=== PATIENT | female | born 1945 | race Caucasian/White ===

== ENCOUNTER → 2017-05-24 | Outpatient (CLI) | payer OTHER | LOC: FIMAGING 11:35 | PROVIDERS: ATTEND Internal Medicine | DX: Z12.31 Encounter for screening mammogram for malignant neoplasm of breast (principal); Z80.3 Family history of malignant neoplasm of breast ==

== ENCOUNTER → 2018-05-06 | Outpatient (CLI) | payer OTHER | LOC: BMCIMAGING 11:59 | PROVIDERS: ATTEND Internal Medicine | DX: J40 Bronchitis, not specified as acute or chronic (principal) ==

== ENCOUNTER → 2018-06-19 | Outpatient (CLI) | payer OTHER | LOC: BMCIMAGING 08:06 | PROVIDERS: ATTEND Internal Medicine | DX: R94.5 Abnormal results of liver function studies (principal); K76.89 Other specified diseases of liver ==

== ENCOUNTER → 2018-07-22 | Outpatient (CLI) | payer OTHER | LOC: FIMAGING 14:38 | PROVIDERS: ATTEND Internal Medicine | DX: Z12.31 Encounter for screening mammogram for malignant neoplasm of breast (principal); Z80.3 Family history of malignant neoplasm of breast ==

== ENCOUNTER 2018-08-07 09:04 | Outpatient (CLI) | payer OTHER ==
[2018-08-07] MEDS ORDERED: NALOXONE HCL 0.4 MG/ML INJ IVP PRN (09:08)
[2018-08-07] MEDS ORDERED: fentaNYL 100 MCG/2 ML INJ IVP PRN (09:08)
[2018-08-07] MEDS ORDERED: MIDAZOLAM 2 MG/2 ML VIAL IVP PRN (09:08)
[2018-08-07] MEDS ORDERED: FLUMAZENIL 0.5 MG/5 ML MDV IVP PRN (09:08)
[2018-08-07] MEDS ORDERED: NS 1,000 ML IV SCH (09:15)
[2018-08-07] MEDS ORDERED: LIDOCAINE 1% 300 MG/30 ML SDV ONE (09:49)
[2018-08-07] MEDS ORDERED: MIDAZOLAM 2 MG/2 ML VIAL ONE (10:01)
[2018-08-07] MEDS ORDERED: fentaNYL 100 MCG/2 ML INJ ONE (10:01)
[2018-08-07] MEDS ORDERED: FLUMAZENIL 0.5 MG/5 ML MDV IVP ONE (10:01)
[2018-08-07] MEDS ORDERED: NALOXONE HCL 0.4 MG/ML INJ ONE (10:02)
--- NOTE | 2018-08-07 10:29 | PDPROPOC ---
Sedation Plan of Care ASA Classification: ASA 2 Mallampati Score: Class 2 Mallampati Reference Image:
--- NOTE | 2018-08-07 10:29 | PDRADPRE ---
Radiology History & Physical Indication for procedure: liver disease Home medications: Aspirin 81mg (*) 81 mg PO DAILY 07/31/18 [Last Taken Unknown] Levothyroxine 0.088 mg PO DAILY 07/31/18 [Last Taken Unknown] Preservision Areds 2 Softgel 1 tab PO BID 07/31/18 [Last Taken Unknown] Ranitidine HCl 150 mg PO DAILY 07/31/18 [Last Taken Unknown] Sertraline HCl 50 mg PO DAILY 07/31/18 [Last Taken Unknown] Vitamin D3 1 tab PO DAILY 07/31/18 [Last Taken Unknown] Allergies/Adverse Reactions: No Known Allergies Allergy (Unverified 07/31/18 18:11) Mental status: A&Ox3
[2018-08-07] MEDS ORDERED: oxyCODONE IR 5 MG TAB PO PRN (11:12)
[2018-08-07] MEDS ORDERED: ONDANSETRON 4 MG/2 ML VIAL IVP PRN (11:12)
--- NOTE | 2018-08-07 11:12 | PDRADPN ---
Radiology Procedure Note Date of Procedure: 08/07/18 Radiologist: Pablo Avilez Anesthesia: IV Sedation Pre-op Diagnosis: elevated LFTs Post-op Diagnosis: same Procedure: non-targeted liver biopsy Inf/Abcess present in the surg proc area at time of surgery?: No
[2018-08-07 13:08] VITALS: BP 97/40
== END 2018-08-07 13:44 | disposition home or self-care (01) ==
LOC: FIMAGING 09:04
PROVIDERS: ATTEND Physician Assistant
DX: R94.5 Abnormal results of liver function studies (principal); K75.9 Inflammatory liver disease, unspecified; K74.0 Hepatic fibrosis
CPT/HCPCS: 47000; 76942; 88307; 88312; 88313; 99152; 99153; J2250; J3010; J2310

== ENCOUNTER → 2018-08-23 | Outpatient (CLI) | payer OTHER | LOC: BMCIMAGING 16:24 | PROVIDERS: ATTEND Emergency Medicine | DX: S99.922A Unspecified injury of left foot, initial encounter (principal) ==